=== PATIENT | female | born 2000 | race Caucasian/White ===

== ENCOUNTER 2021-12-06 14:06 | Emergency (ER) | payer MEDICAID ==
[~2021-12-06] VITALS: Ht 165.1 cm; Wt 56.0 kg
[2021-12-06] MEDS ORDERED: ONDANSETRON HCL 4MG/2ML INJ IM STA (17:33)
[2021-12-06] MEDS ORDERED: ACETAMINOPHEN 325MG TABLET PO STA (17:33)
[2021-12-06 18:03] LABS: BASOPHILS % 0.2 % (0.0-2.0); EOSINOPHILS % 0.7 % (0.0-5.0); HEMATOCRIT. 33.9 % (36.0-48.0); HEMOGLOBIN. 10.7 g/dL (12.0-16.0); LYMPHOCYTES % 15.8 % (20.0-50.0); MEAN CORPUSCULAR HEMOGLOBIN 24.9 pg (28.0-32.0); MEAN CORPUSCULAR VOLUME 78.7 fL (81.0-99.0); MEAN PLATELET VOLUME 10.4 fl (7.4-10.4); MONOCYTES % 5.9 % (2.0-8.0); NEUTROPHILS % 77.4 % (40.0-76.0); PLATELET 223 x1000/uL (130-400); RED BLOOD CELL COUNT 4.31 mill/uL (4.2-5.4); RED CELL DISTRIBUTION WIDTH 18.7 % (11.6-14.6)
[2021-12-06 18:31] LABS: CHLORIDE 103 mEq/L (98-107)
[2021-12-06 18:56] LABS: B-HCG QUANTITATIVE 127097 mIU/mL (<3)
[2021-12-06 20:17] LABS: CLARITY URINE CLEAR (CLEAR); COLOR URINE YELLOW (YELLOW); KETONES URINE 4+ (NEGATIVE); LEUKOCYTE ESTERASE URINE TRACE (NEGATIVE); NITRITE URINE NEGATIVE (NEGATIVE); OCCULT BLOOD URINE NEGATIVE (NEGATIVE); PH URINE 7.5 (4.5-8.0); PROTEIN URINE NEGATIVE (NEGATIVE); SPECIFIC GRAVITY URINE 1.023 (1.005-1.030)
[2021-12-06] MEDS ORDERED: CEPH500C2 MT (21:30)
[2021-12-06] MEDS ORDERED: MICO45CR75 VG (21:30)
[2021-12-06 21:50] VITALS: BP 118/65
== END 2021-12-06 22:00 | disposition home or self-care (01) ==
LOC: ER 14:06
DX: O23.41 Unspecified infection of urinary tract in pregnancy, first trimester (principal); N39.0 Urinary tract infection, site not specified; Z3A.08 8 weeks gestation of pregnancy
CPT/HCPCS: 36415; 76801; 76817; 80053; 81003; 81025; 83690; 84702; 85025; 86850; 86900; 86901; 99284; J2405